=== PATIENT | male | born 2000 | race African-American/Black ===

== ENCOUNTER 2020-08-10 01:43 | Emergency (ER) | payer SELFPAY ==
[~2020-08-10] VITALS: Ht 182 cm; Wt 77.0 kg
--- NOTE | 2020-08-10 02:07 | ED Cough/URI ---
General Chief Complaint: Cough/Cold/Flu Symptoms Stated Complaint: SOB Nursing Triage Note: SOA, LOSS OF TASTE/SMELL X3 DAYS. Sepsis Screen: No Definite Risk Source: patient History of Present Illness Date Seen by Provider: Aug 10, 2020 Time Seen by Provider: 02:00 Initial Comments PT ARRIVES VIA POV FROM HOME C/O SHORTNESS OF BREATH C/O LOSS OF TASTE AND SMELL X 3 DAYS NO FEVER/SWEATS/CHILLS HAD SLIGHT RUNNY NOSE 3 DAYS AGO, BUT NOT NOW NO COUGH NO HEADACHE NO BODY ACHES NO GI SYMPTOMS NO CHEST PAIN JUST GOT BACK FROM [facility]--WAS THERE FROM 06/26/20-07/19/20 STATES THAT HE TESTED NEGATIVE 2 DAYS BEFORE HE LEFT. PT IS [employer] AND LIVES OFF-CAMPUS WITH 3 ROOM MATES. NONE OF THEM ARE ILL, PER PT. [employer] FROM [facility] Allergies and Home Medications Allergies Coded Allergies: No Known Drug Allergies (Unverified , 08/10/20) Home Medications No Active Prescriptions or Reported Meds Patient Home Medication List Home Medication List Reviewed: Yes Review of Systems Review of Systems Constitutional: no symptoms reported; No chills, No diaphoresis, No dizziness, No fever EENTM: see HPI Respiratory: see HPI; No cough; short of breath Cardiovascular: no symptoms reported Gastrointestinal: no symptoms reported; No abdominal pain, No diarrhea, No loss of appetite, No nausea, No vomiting Genitourinary: no symptoms reported Musculoskeletal: no symptoms reported; No muscle pain, No neck pain Skin: no symptoms reported Psychiatric/Neurological: No Symptoms Reported; Denies Headache Hematologic/Lymphatic: No Symptoms Reported Immunological/Allergic: no symptoms reported Past Iblfdaq-Azqfpu-Siuoda Hx Past Med/Social Hx: Reviewed and Corrections made Patient Social History Alcohol Use: Occasionally Uses Smoking Status: Never a Smoker Recent Infectious Disease Expo: No Recent Hopitalizations: No Immunizations Up To Date Tetanus Booster (TDap): Less than 5yrs Seasonal Allergies Seasonal Allergies: No Past Medical History Surgeries: No Respiratory: No Cardiac: No Neurological: No Genitourinary: No Gastrointestinal: No Musculoskeletal: No Endocrine: No HEENT: No Cancer: No Psychosocial: No Integumentary: No Blood Disorders: No Physical Exam Vital Signs - First Documented 08/10/20 01:45 Temp 36.7 Pulse 105 Resp 16 B/P (MAP) 140/86 (104) Pulse Ox 98 O2 Delivery Room Air Capillary Refill : Less Than 3 Seconds Height: '" Weight: lbs. oz. kg; 23.00 BMI Method: General Appearance: WD/WN, no apparent distress, other (DOES NOT APPEAR ILL OR TO BE IN ANY DISCOMFORT OR DISTRESS. NO COUGH OR DYSPNEA NOTED ON EXAM. ) HEENT: PERRL/EOMI, normal ENT inspection, TMs normal, pharynx normal Neck: full range of motion, supple, normal inspection Respiratory: normal breath sounds, no respiratory distress, no accessory muscle use Cardiovascular: regular rate, rhythm, no edema, no JVD, no murmur Gastrointestinal: non tender, soft Extremities: normal inspection, normal capillary refill Neurologic/Psychiatric: no motor/sensory deficits, alert, normal mood/affect, oriented x 3 Skin: normal color (PT IS BLACK), warm/dry Progress/Results/Core Measures Suspected Sepsis Recent Fever Within 48 Hours: No Infection Criteria Present: None New/Unexplained Altered Menta: No Sepsis Screen: No Definite Risk SIRS Temperature: Pulse: 105 Respiratory Rate: 16 Blood Pressure 140 /86 Mean: 104 Results/Orders Lab Results Laboratory Tests Test 08/10/20 01:55 Range/Units Coronavirus 2019 (PETER) Positive H Negative Micro Results Microbiology 08/10/20 Influenza Types A,B Antigen (SILVA) - Final, Complete My Orders Orders - MOUSTAPHA PEPPER DO Influenza A And B Antigens (08/10/20 02:03) Coronavirus Sars-Cov-2 So 2018 (08/10/20 02:03) Covid 19 Inhouse Test (08/10/20 02:03) Vital Signs/I&O 08/10/20 08/10/20 08/10/20 01:45 01:45 02:35 Temp 36.7 36.7 Pulse 105 86 Resp 16 16 B/P (MAP) 140/86 (104) 118/68 (104) Pulse Ox 98 99 O2 Delivery Room Air Room Air Room Air Capillary Refill : Less Than 3 Seconds Blood Pressure Mean: 104 Progress Note : Progress Note PLACED IN ISOLATION ROOM PPE WORN AT ALL TIMES COVID-19 TESTING PERFORMED. PT ADVISED OF NEED FOR QUARANTINE FOR HIMSELF AND HIS ROOM MATES. Departure Impression Primary Impression: COVID-19 virus infection Disposition: HOME, SELF-CARE Condition: Stable Departure-Patient Inst. Patient Instructions: Coronavirus Disease 2019 (COVID-19) (DC), Preventing the Spread of an Infectious Disease Add. Discharge Instructions: HOME, REST LOTS OF CLEAR LIQUIDS TYLENOL 1 GRAM/ MOTRIN 800 MG 4 TIMES A DAY NEEDED FOR PAIN OR FEVER OVER THE COUNTER MEDICATIONS FOR COUGH AND CONGESTION NEEDED QUARANTINE YOURSELF AND ALL HOUSEHOLD MEMBERS AND CLOSE CONTACTS FOR 2 WEEKS OR UNTIL CLEARED BY DR OR HEALTH DEPT. YOU NEED TO CONTACT [facility] AND INFORM THEM OF YOUR TEST RESULT RETURN TO ER IF SYMPTOMS WORSEN All discharge instructions reviewed with patient and/or family. Voiced understanding. Scripts No Active Prescriptions or Reported Meds Work/School Note: School/Childcare Release Date Seen in the Emergency Department: Aug 10, 2020 Time Dismissed from Emergency Department: 02:32 Return to School: Aug 25, 2020 MOUSTAPHA PEPPER DO Aug 10, 2020 02:07
[2020-08-10 02:35] VITALS: BP 118/68
== END 2020-08-10 02:40 | disposition home or self-care (01) ==
LOC: ER 01:47
DX: U07.1 COVID-19 (principal)
CPT/HCPCS: 87804; 99282; U0002; 87635